=== PATIENT | female | born 1975 | race Caucasian/White ===

== ENCOUNTER → 2016-05-13 | Outpatient (REF) | payer BC | LOC: M SFHCLERA 10:36 | PROVIDERS: ATTEND Physician Assistant | DX: R50.9 Fever, unspecified (principal) ==

== ENCOUNTER → 2016-08-22 | Outpatient (REF) | payer BC | LOC: M SFHCLERA 18:19 | PROVIDERS: ATTEND Nurse Practitioner Family | DX: J06.9 Acute upper respiratory infection, unspecified (principal) ==

== ENCOUNTER → 2016-12-27 | Outpatient (REF) | payer BC | LOC: M SFHCLERA 18:33 | PROVIDERS: ATTEND Nurse Practitioner Family | DX: R30.0 Dysuria (principal); N76.0 Acute vaginitis ==

== ENCOUNTER → 2017-08-19 | Outpatient (REF) | payer BC | LOC: M SFHCLERA 10:12 | DX: R10.9 Unspecified abdominal pain (principal) | CPT/HCPCS: 87086 ==

== ENCOUNTER → 2017-08-25 | Outpatient (REF) | payer BC | LOC: M SFHCLERA 19:25 | DX: N94.9 Unspecified condition associated with female genital organs and menstrual cycle (principal) | CPT/HCPCS: 87070 ==

== ENCOUNTER → 2017-11-12 | Outpatient (REF) | payer BC | LOC: M SFHCLERA 19:20 | DX: J02.9 Acute pharyngitis, unspecified (principal) | CPT/HCPCS: 86308 ==

== ENCOUNTER → 2018-06-29 | Outpatient (REF) | payer BC | LOC: M SFHCLERA 11:08 | PROVIDERS: ATTEND Nurse Practitioner Family | DX: R53.81 Other malaise (principal) ==

== ENCOUNTER → 2019-05-14 | Outpatient (REF) | payer BC ==
[2019-05-14 18:28] LABS: CHLAMYDIA DNA AMPLIFICATION NEGATIVE (NEGATIVE); GC DNA AMPLIFICATION NEGATIVE (NEGATIVE)
== END ==
LOC: M SFHCLERA 11:01
PROVIDERS: ATTEND Nurse Practitioner Family
DX: R35.0 Frequency of micturition (principal)

== ENCOUNTER → 2021-01-26 | Outpatient (REF) | payer BC | LOC: M WUC 11:56 | PROVIDERS: ATTEND Physician Assistant | DX: R30.0 Dysuria (principal) ==

== ENCOUNTER → 2021-03-16 | Outpatient (REF) | payer BC | LOC: M LAB REF 15:33 | PROVIDERS: ATTEND Physician Assistant | DX: J01.10 Acute frontal sinusitis, unspecified (principal) ==